=== PATIENT | male | born 1970 | race African-American/Black ===

== ENCOUNTER 2018-10-27 08:10 | Emergency (ER) | payer SELFPAY ==
--- NOTE | 2018-10-27 08:51 | ER ---
Nurse's Notes [facility] Name: Tony Barrera Age: 47 yrs Sex: Male : 1970 Arrival Date: 10/27/2018 Time: 08:12 Bed 7 Private MD: None, None Diagnosis: Chest pain, unspecified Presentation: 10/27 08:22 Presenting complaint: Patient states: this pain on my R upper abd just below the R rib hj cage started 2 days ago, went to the clinic and they Rx me with antibiotics which i dont remember the name, last night the pain is worse; denies N/V; denies cough;. 08:22 Transition of care: patient was not received from another setting of care. Onset of hj symptoms. Risk Assessment: Do you want to hurt yourself or someone else? Patient reports no desire to harm self or others. Initial Sepsis Screen: Does the patient meet any 2 criteria? Yes Does the patient have a suspected source of infection? Yes:. Care prior to arrival: None. 08:22 Method Of Arrival: Ambulatory 08:22 Acuity: LISA 3 hj Triage Assessment: 08:22 General: Appears in no apparent distress. uncomfortable, Behavior is cooperative, hj appropriate for age, anxious. Pain: Complains of pain in abdomen. EENT: No signs and/or symptoms were reported regarding the EENT system. Neuro: Level of Consciousness is awake, alert, obeys commands, Oriented to person, place, time, situation, Appropriate for age. Cardiovascular: Capillary refill < 3 seconds Patient's skin is warm and dry. Respiratory: Airway is patent Respiratory effort is even, unlabored, Respiratory pattern is regular, symmetrical. GI: Reports upper abdominal pain. : No signs and/or symptoms were reported regarding the genitourinary system. Derm: No signs and/or symptoms reported regarding the dermatologic system. Musculoskeletal: No signs and/or symptoms reported regarding the musculoskeletal system. Historical: - Allergies: 08: No Known Allergies; hj - Home Meds: 08: vitamins [Active]; hj - PMHx: 08: None; hj - PSHx: 08: None; hj - Immunization history:: Adult Immunizations up to date. - Social history:: Smoking status: Patient uses tobacco products, smokes one pack cigarettes per day. - Ebola Screening: : Patient negative for fever greater than or equal to 101.5 degrees Fahrenheit, and additional compatible Ebola Virus Disease symptoms Patient denies exposure to infectious person Patient denies travel to an Ebola-affected area in the 21 days before illness onset. Screenin:22 Abuse screen: Denies threats or abuse. Denies injuries from another. Nutritional hj screening: No deficits noted. Tuberculosis screening: No symptoms or risk factors identified. Fall Risk None identified. Assessment: 08:22 GI: Bowel sounds present X 4 quads. Abdomen is tender to palpation. hj 08:25 Reassessment: pt refused IV and IV meds, provider informed;. hj 08:30 Reassessment: provider in room;. hj 08:45 Reassessment: pt for D/C with Rx;. hj Vital Signs: 08:22 BP 101 / 51; Pulse 126; Resp 18; Pulse Ox 97% on R/A; hj 08:47 BP 122 / 82; Pulse 110; Resp 16; Temp 98.4; Pulse Ox 98% ; pc1 ED Course: 08:12 Patient arrived in ED. mr 08:12 None, None is Private Physician. mr 08:20 Jesus Manuel Ellis PA is PHCP. jmm 08:20 Adrián Barkley MD is Attending Physician. jmm 08:22 Ben Jackson, CARMEN is Primary Nurse. hj 08:22 Arm band placed on right wrist. hj 08:22 Patient has correct armband on for positive identification. Placed in gown. Bed in low hj position. Call light in reach. Side rails up X 1. 08:34 Triage completed. hj 08:41 XRAY Chest (1 view) In Process Unspecified. EDMS 08:55 No provider procedures requiring assistance completed. Patient did not have IV access hj during this emergency room visit. Administered Medications: 08:47 Not Given (pt refused IV and IV meds): Valium 2 mg IVP once hj 08:48 Not Given (pt refused IV and IV meds): Ketorolac 30 mg IVP once hj 08:48 Not Given (pt refused, pt will drive himself home): Valium 5 mg PO once hj 08:49 Not Given (pt refused, provider will Rx D/C meds): Motrin 800 mg PO once hj Outcome: 08:50 Discharge ordered by . jmm 08:55 Discharged to home ambulatory. pina 08:55 Condition: stable 08:55 Discharge instructions given to patient, Instructed on discharge instructions, follow up and referral plans. medication usage, Demonstrated understanding of instructions, follow-up care, medications, Prescriptions given X 1. 08:56 Patient left the ED. pina Signatures: Dispatcher [employer] EDMS Jesus Manuel Ellis PA PA jmm Rivera, Mary mr Ben Jackson RN RN Jovon Lama [facility]
--- NOTE | 2018-10-27 08:52 | EDPHYS ---
Physician Documentation [facility] Name: Tony Barrera Age: 47 yrs Sex: Male : 1970 Arrival Date: 10/27/2018 Time: 08:12 Bed 7 Private MD: None, None ED Physician Adrián Barkley HPI: 10/27 08:27 This 47 yrs old Black Male presents to ER via Ambulatory with complaints of Abdominal jmm Pain. 08:27 The patient or guardian reports chest pain that is located primarily in the anterior jmm chest wall, right. Onset: gradually, 3 day(s) ago. The chest pain is described as sharp. Duration: The patient or guardian reports multiple episodes, that wax and wane. This is a 47 year old male with no chronic medical conditions that presents to the ED with right sided chest pain that he describes as a muscle spasm. Patient states he was evaluated outpatient for this and prescribed antibiotics. Patient denies fever or cough. Patient states the pain will radiate from the right inferior chest wall to the right lateral chest wall. Denies shortness of breath. . Historical: - Allergies: 08:22 No Known Allergies; hj - Home Meds: 08:22 vitamins [Active]; hj - PMHx: 08:22 None; hj - PSHx: 08:22 None; hj - Immunization history:: Adult Immunizations up to date. - Social history:: Smoking status: Patient uses tobacco products, smokes one pack cigarettes per day. - Ebola Screening: : Patient negative for fever greater than or equal to 101.5 degrees Fahrenheit, and additional compatible Ebola Virus Disease symptoms Patient denies exposure to infectious person Patient denies travel to an Ebola-affected area in the 21 days before illness onset. ROS: 08:27 Constitutional: Negative for fever, chills, and weight loss. jmm 08:27 Respiratory: Negative for shortness of breath, cough, wheezing, and pleuritic chest pain, Abdomen/GI: Negative for abdominal pain, nausea, vomiting, diarrhea, and constipation. 08:27 Cardiovascular: Positive for chest pain. 08:27 All other systems are negative. Exam: 08:27 Head/Face: atraumatic. Chest/axilla: Normal chest wall appearance and motion. jmm 08:27 Back: Normal ROM Skin: General appearance color normal MS/ Extremity: Moves all extremities, no obvious deformities appreciated, no edema noted to the lower extremities Neuro: Awake and alert, normal gait Psych: Behavior is normal, Mood is normal, Patient is cooperative and pleasant 08:27 Constitutional: The patient appears alert, awake, anxious. 08:27 Chest/axilla: Palpation: tenderness, that is moderate, of the right lateral anterior chest and right breast, that totally reproduces the patient's complaints. 08:27 Cardiovascular: Rate: tachycardic, Rhythm: regular, Pulses: no pulse deficits are appreciated. 08:27 Respiratory: the patient does not display signs of respiratory distress, Respirations: normal, Breath sounds: are clear throughout. 08:27 Abdomen/GI: Inspection: abdomen appears normal, Bowel sounds: normal, Palpation: abdomen is soft and non-tender, in all quadrants. Vital Signs: 08:22 BP 101 / 51; Pulse 126; Resp 18; Pulse Ox 97% on R/A; hj 08:47 BP 122 / 82; Pulse 110; Resp 16; Temp 98.4; Pulse Ox 98% ; pc1 MDM: 08:27 Patient medically screened. [facility] 08:49 Data reviewed: vital signs, nurses notes. Counseling: I had a detailed discussion with matthieu the patient and/or guardian regarding: the historical points, exam findings, and any diagnostic results supporting the discharge/admit diagnosis, the need for outpatient follow up, to return to the emergency department if symptoms worsen or persist or if there are any questions or concerns that arise at home. Refusal of service: The patient/guardian displays adequate decision making capability and despite a detailed discussion of alternatives, benefits, risks, and consequences refuses: all lab tests, all X-rays. 08:50 ED course: Patient's symptoms were alleviated in the ED. I discussed with the patient matthieu the need for further lab studies to evaluate for potentially life threatening conditions. Patient refused. Patient appears to be able to make rational decisions. Patient was given return precautions. patient understood and agrees with the plan of care. . 10/27 08:28 Order name: XRAY Chest (1 view) [facility] 10/27 08:28 Order name: EKG; Complete Time: 08:29 [facility] 10/27 08:28 Order name: Cardiac monitoring; Complete Time: 08:30 [facility] 10/27 08:28 Order name: EKG - Nurse/Tech; Complete Time: 08:31 [facility] 10/27 08:28 Order name: O2 Per Protocol; Complete Time: [facility] 10/27 08:28 Order name: O2 Sat Monitoring; Complete Time: [facility] Administered Medications: 08:47 Not Given (pt refused IV and IV meds): Valium 2 mg IVP once hj 08:48 Not Given (pt refused IV and IV meds): Ketorolac 30 mg IVP once hj 08:48 Not Given (pt refused, pt will drive himself home): Valium 5 mg PO once hj 08:49 Not Given (pt refused, provider will Rx D/C meds): Motrin 800 mg PO once hj Disposition: 18:45 Co-signature as Attending Physician, Adrián Barkley MD Available for consultation at ps1 all times.. Disposition: 10/27/18 08:50 Discharged to Home. Impression: Chest pain, unspecified. - Condition is Stable. - Discharge Instructions: Nonspecific Chest Pain. - Prescriptions for Cyclobenzaprine 10 mg Oral Tablet - take 1 tablet by ORAL route every 8 hours As needed; 30 tablet. - Medication Reconciliation Form, Thank You Letter, Antibiotic Education, Prescription Opioid Use form. - Follow up: Private Physician; When: 2 - 3 days; Reason: Recheck today's complaints, Continuance of care, Re-evaluation by your physician. Signatures: Dispatcher [employer] EDTX Jesus Manuel Ellis PA PA [facility] Ben Jackson RN RN hj Singer, Phillip, MD MD ps1 Corrections: (The following items were deleted from the chart) 08:56 08:50 10/27/2018 08:50 Discharged to Home. Impression: Chest pain, unspecified. hj Condition is Stable. Forms are Medication Reconciliation Form, Thank You Letter, Antibiotic Education, Prescription Opioid Use. Follow up: Private Physician; When: 2 - 3 days; Reason: Recheck today's complaints, Continuance of care, Re-evaluation by your physician. [facility] 08:27 The pain does not radiate. [facility] 08:27 This is a 47 year old male with no chronic medical conditions that presents to [facility] the ED with right sided chest pain that he describes as a muscle spasm. Patient states he was evaluated outpatient for this and prescribed antibiotics. Patient denies fever or cough. Patient states the pain will radiate from the left inferior chest wall to the right lateral chest wall. Denies shortness of breath. . matthieu
--- NOTE | 2018-10-27 09:44 | RAD REPORT ---
EXAM DESCRIPTION: Courtney Single View10/27/2018 8:41 am CLINICAL HISTORY: Chest pain COMPARISON: none FINDINGS: The lungs appear clear of acute infiltrate. The heart is normal size IMPRESSION: No acute abnormalities displayed
--- NOTE | 2018-10-27 11:40 | EKG ---
Test Date: 2018-10-27 Test Time: 08:38:03 Strategies Analyst: ANILA MEASUREMENT RESULTS: Intervals: Rate: 106 RI: 130 QRSD: 90 QT: 338 QTc: 448 [place]: P: 69 RI: 130 QRS: 78 T: 10 INTERPRETIVE STATEMENTS: Sinus tachycardia Nonspecific T wave abnormality Abnormal ECG Compared to ECG 07/31/2017 18:21:59 Left ventricular hypertrophy no longer present T-wave abnormality still present Electronically Signed On 10-27-18 11:39:26 LINE CREW SUPERVISOR by Abdoulaye Lucero
== END 2018-10-27 08:56 | disposition home or self-care (01) ==
LOC: ER 08:10
DX: R07.9 Chest pain, unspecified (principal); F17.210 Nicotine dependence, cigarettes, uncomplicated
CPT/HCPCS: 71045; 93005; 99283

== ENCOUNTER 2020-05-13 05:46 | Emergency (ER) | payer SELFPAY ==
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
[2020-05-14 09:55] VITALS: TEMP 98.4
[2020-05-14 09:56] VITALS: BP 120/85; O2SAT 98
== END 2020-05-13 06:41 | disposition home or self-care (01) ==
LOC: ER 05:46
DX: S00.81XA Abrasion of other part of head, initial encounter (principal); S40.812A Abrasion of left upper arm, initial encounter; S20.312A Abrasion of left front wall of thorax, initial encounter; S20.419A Abrasion of unspecified back wall of thorax, initial encounter; Z04.71 Encounter for examination and observation following alleged adult physical abuse; Y04.8XXA Assault by other bodily force, initial encounter; Y93.9 Activity, unspecified; Y92.89 Other specified places as the place of occurrence of the external cause; F17.210 Nicotine dependence, cigarettes, uncomplicated
CPT/HCPCS: 99283